=== PATIENT | female | born 1955 | race Caucasian/White ===

== ENCOUNTER → 2018-02-11 09:53 | Emergency (ER) | payer OTHER ==
[~2018-02-11 09:53] MED LIST: Ketorolac INJ* 30 MG/ML 1 ML VIAL IV PUSH ONE; NS 0.9% 1000 ML* 1,000 ML IV ONE
--- NOTE | 2018-02-11 10:15 | ED ---
Abdominal Pain/Female - HPI Summary HPI Summary: 63 y/o female presents to the ED c/o severe, constant ABD pain and N/V starting this morning. Pain rated 9/10, located mostly in the RUQ. Pt has had episodes intermittently for the past 6 months. The episodes are usually in the morning, not affected by meals. - History of Current Complaint Chief Complaint: EDAbdPain Stated Complaint: ABD PAIN Hx Obtained From: Patient Onset/Duration: Lasting Hours, Still Present Severity Initially: Severe Severity Currently: Severe Pain Intensity: 9 Pain Scale Used: 0-10 Numeric Location: Discrete At: RUQ Aggravating Factor(s): Nothing Alleviating Factor(s): Nothing Associated Signs and Symptoms: Positive: Nausea, Vomiting Allergies/Adverse Reactions: Allergies Allergy/AdvReac Type Severity Reaction Status Date / Time MS Penicillins [Penicillins] Allergy Rash Verified 02/11/18 10:37 Home Medications: Home Medications buPROPion TAB* [Wellbutrin TAB*] 100 mg PO DAILY 02/11/18 [History Confirmed ] PMH/Surg Hx/FS Hx/Imm Hx Previously Healthy: No Endocrine/Hematology History: Denies: Hx Diabetes Cardiovascular History: Denies: Hx Hypertension, Hx Pacemaker/ICD Respiratory History: Reports: Hx Sleep Apnea - CAN'T TOLERATE CPAP Denies: Hx Asthma History: Denies: Hx Renal Disease Musculoskeletal History: Reports: Hx Arthritis - LOW BACK, NECK, SHOULDERS Denies: Hx Scoliosis Sensory History: Denies: Hx Hearing Aid Neurological History: Denies: Hx Headaches, Other Neuro Impairments/Disorders Psychiatric History: Reports: Hx Anxiety Denies: Hx Panic Disorder - Cancer History Hx Chemotherapy: No - melanoma face Hx Radiation Therapy: No - Surgical History Surgery Procedure, Year, and Place: 1968 APPENDECTOMY [place]. 1997 ABDOMINAL ADHESIONS [facility] [place]. 2002 RT SHOULDER [facility] [place]. 2009 LEFT THIGH MUSCLE ( TRAUMA) [place]. MELANOMA REMOVED FROM FACE Hx Anesthesia Reactions: No Infectious Disease History: No Infectious Disease History: Denies: Traveled Outside the [place] in Last 30 Days - Social History Alcohol Use: Occasionally Alcohol Amount: 2 GLASSES/MONTH Substance Use Type: Reports: None Smoking Status (MU): Never Smoked Tobacco Have You Smoked in the Last Year: No Review of Systems Constitutional: Negative Eyes: Negative ENT: Negative Cardiovascular: Negative Respiratory: Negative Positive: Abdominal Pain, Vomiting, Nausea Genitourinary: Negative Musculoskeletal: Negative Skin: Negative Neurological: Negative Psychological: Normal All Other Systems Reviewed And Are Negative: No Physical Exam - Summary Physical Exam Summary: impressive epigastric and RUQ tenderness Triage Information Reviewed: Yes Vital Signs On Initial Exam: Initial Vitals Temp Pulse Resp BP Pulse Ox 96.6 F 86 16 147/95 98 02/11/18 09:54 02/11/18 09:54 02/11/18 09:54 02/11/18 09:54 02/11/18 09:54 Vital Signs Reviewed: Yes Diagnostics - Vital Signs Vital Signs Temp Pulse Resp BP Pulse Ox 02/11/18 09:54 96.6 F 86 16 147/95 98 - Laboratory Result Diagrams: 02/11/18 10:41 02/11/18 10:41 Lab Statement: Any lab studies that have been ordered have been reviewed, and results considered in the medical decision making process. - Ultrasound No standard instances Ultrasound Interpretation Completed By: Radiologist - Gallbladder US - HEPATIC STEATOSIS. CHOLELITHIASIS. ED Physician reviews and agrees. - EKG 1 EKG Interpretation: SR @ 74 BPM. Normal QRS, TQc, normal axis, no ST T wave changes. Abdominal Pain Fem Course/Dx - Course Course Of Treatment: 63 y/o female c/o severe RUQ pain and nausea starting this morning. Gallbladder US - HEPATIC STEATOSIS. CHOLELITHIASIS. EKG normal. Pt states this her 4th bad gallbladder attack and that his is a chronic issuse. I will give referral to general surgery. Pt will be d/c, given Tylenol and Motrin for pain and to avoid greasy foods. - Diagnoses Provider Diagnoses: Cholelithiasis Discharge - Sign-Out/Discharge Documenting (check all that apply): Patient Departure - Discharge Plan Condition: Stable Disposition: ADMITTED TO [facility] Patient Education Materials: Gallstones (ED) Referrals: Nic Garcia MD [Medical Doctor] - Lisa Camejo MD [Primary Care Provider] - Additional Instructions: Avoid fatty, greasy, or fried foods. take tylenol and motrin for pain. return if worse or any new symptoms. Please call Dr. Garcia, the surgeon, for a follow up appt to discuss your gallstone and the possibility of taking out your gallbladder. return if worse or any new symptoms. - Billing Disposition and Condition Condition: STABLE Disposition: Admitted to [facility] - Attestation Statements Document Initiated by Scribe: Yes Documenting Scribe: Bipin Duarte Provider For Whom Scribe is Documenting (Include Credential): Indy Donahue MD Scribe Attestation: Bipin Ramos, scribed for Indy Donahue MD on 02/11/18 at 1702. Scribe Documentation Reviewed: Yes Provider Attestation: The documentation as recorded by the Bipin carson accurately reflects the service I personally performed and the decisions made by , Indy Donahue MD
[2018-02-11 10:51] LABS: ABS Basophils 0 10^3/ul (0-0.2); ABS Eosinophils 0.1 10^3/ul (0-0.6); ABS Lymphocytes 1.7 10^3/ul (1.0-4.8); ABS Monocytes 0.5 10^3/ul (0-0.8); ABS Neutrophils 4.4 10^3/ul (1.5-7.7); ABS Nucleated RBC 0 10^3/ul; Eosinophil % 1.8 % (0-6); Hematocrit 40 % (35-47); Hemoglobin 13.8 g/dl (12.0-16.0); Lymphocyte % 25.4 % (25-47); Mean Corpuscular HGB Conc 35 g/dl (31-36); Mean Corpuscular Hemoglobin 29 pg (27-31); Mean Corpuscular Volume 84 fL (80-97); Mean Platelet Volume 8.1 um3 (7.4-10.4); Nucleated Red Blood Cells % 0.1; Platelet Count 286 10^3/ul (150-450); Red Blood Count 4.74 10^6/ul (4.00-5.40); Red Cell Distribution Width 13 % (10.5-15); White Blood Count 6.7 10^3/ul (3.5-10.8)
[2018-02-11 11:17] LABS: EGFR Non-African American 82.3 (>60)
--- NOTE | 2018-02-11 11:54 | RAD ---
INDICATION: Right upper quadrant pain COMPARISON: CT October 17, 2014 TECHNIQUE: Longitudinal and transverse scans of the right upper quadrant were obtained. Doppler interrogation of the hepatic and portal venous system was performed. FINDINGS: Liver: There is mild fatty infiltration with focal areas of sparing. The liver measures 16.9 cm in cephalocaudal dimension. Vessels: There is normal hepatic and portal venous flow. Bile ducts: There is no evidence of intrahepatic or extrahepatic ductal dilatation. The common duct measures 0.5 cm. Gallbladder: There are multiple gallstones. There is no thickening gallbladder wall or pericholecystic fluid. The patient was tender over the gallbladder. Pancreas: The visualized pancreas appears normal Right kidney: The right kidney is normal in size and echogenicity. There are no masses or calculi. There is no evidence of hydronephrosis. The right kidney measures 10.2 x 4.9 x 5.3 cm. IVC and aorta: The aorta and superior vena cava appear normal. Fluid: There is no ascites. Other: None. IMPRESSION: HEPATIC STEATOSIS. CHOLELITHIASIS.
[2018-02-11 13:43] VITALS: BP 140/90
== END | disposition short-term general hospital (02) ==
LOC: ED 09:53
DX: K80.20 Calculus of gallbladder without cholecystitis without obstruction (principal); Z85.820 Personal history of malignant melanoma of skin; K76.0 Fatty (change of) liver, not elsewhere classified
CPT/HCPCS: 36415; 76705; 80053; 83690; 83735; 84443; 84484; 85025; 93005; 96361; 96374; 99282; J1885

== ENCOUNTER 2018-03-02 11:33 | Day surgery (SDC) | payer OTHER ==
[~2018-03-02 11:33] MED LIST changes: +Buffered Lidocaine 0.9% SYRIN* 5 ML/SYR SYRINGE INTRADERM ONE; -Ketorolac INJ* 30 MG/ML 1 ML VIAL IV PUSH ONE; +Midazolam* 1 MG/ML 2 ML VIAL (2 MG) ONE; -NS 0.9% 1000 ML* 1,000 ML IV ONE; +fentaNYL* 50 MCG/ML 2 ML VIAL (100 MCG VIAL) ONE
[2018-03-02] MEDS ORDERED: ceFAZolin 2 GM in NS PREMIX(*) 2 GM/100 ML BAG IVPB ONE (11:41)
[2018-03-02] MEDS ORDERED: Ropivacaine* 2 MG/ML 20 ML VIAL (0.2%) ONE (11:58)
[2018-03-02] MEDS ORDERED: Bupivacaine 0.25% SDV PF* 10 ML VIAL INJ ONE (12:24)
[2018-03-02] MEDS ORDERED: PROCHLORPERAZINE INJ 5 MG/ML 2 ML VIAL IV PRN (12:39)
[2018-03-02] MEDS ORDERED: HYDROcodone/ACETAMIN 5-325 MG* 1 TAB PO PRN ×2 (12:39)
[2018-03-02] MEDS ORDERED: Ondansetron INJ* 2 MG/ML VIAL IV PRN (12:39)
[2018-03-02] MEDS ORDERED: fentaNYL* 50 MCG/ML 2 ML VIAL (100 MCG VIAL) IV PRN (12:39)
[2018-03-02] MEDS ORDERED: diPHENhydraMINE IV* 50 MG/ML 1 ml VIAL (BENADRYL) IV PRN (12:39)
[2018-03-02] MEDS ORDERED: Naloxone* 0.4 MG/ML 1 ML VIAL IV PRN (12:39)
[2018-03-02] MEDS ORDERED: Acetaminophen TAB* 325 MG PO PRN (12:39)
[2018-03-02] MEDS ORDERED: DiMENhydriNATE IV* 50 MG/ML VIAL IV PUSH PRN (12:39)
[2018-03-02] MEDS ORDERED: Nalbuphine* 10 MG/ML 1 ML VIAL IV PRN (12:39)
[2018-03-02] MEDS ORDERED: Scopolamine 1.5 mg* PATCH TRANSDERM PRN (12:39)
[2018-03-02] MEDS ORDERED: Propofol* 10 MG/ML 20 ML BTL IV PUSH ONE (12:53)
[2018-03-02] MEDS ORDERED: Dexamethasone IV* 4 MG/ML 1 ML (4 MG) ONE (12:53)
[2018-03-02] MEDS ORDERED: Mivacurium Chloride* 20 MG/10 ML VIAL IV ONE (12:53)
[2018-03-02] MEDS ORDERED: Lidocaine 2% PF * 5 ML VIAL ONE (12:53)
[2018-03-02] MEDS ORDERED: Famotidine IV* 10 MG/ML 2 ML (20 mg) ONE (12:53)
[2018-03-02] MEDS ORDERED: Ondansetron INJ* 2 MG/ML VIAL ONE (12:53)
[2018-03-02] MEDS ORDERED: Ketorolac INJ* 30 MG/ML 1 ML VIAL ONE (12:53)
[2018-03-02] MEDS ORDERED: fentaNYL* 50 MCG/ML 2 ML VIAL (100 MCG VIAL) ONE (13:11)
--- NOTE | 2018-03-02 13:36 | OP ---
Operative Report - Blank - Operative Report Date of Operation: 03/02/18 Note: Brief Operative Note Preop Dx: symptomatic cholelithiasis Postop Dx: same; plus sebaceous cyst of abdominal wall Procedure: laparoscopic cholecystectomy; excision sebaceous cyst abd wall Anesthesia: GET Surgeon: Jose Mail Distribution Clerk: CHAUNCEY Hidalgo Fluids: 900 ml RL EBL: < 50 ml Specimen: gallbladder; sebaceous cyst Drains: none Findings: dictated
[2018-03-02] MEDS ORDERED: HYDROcodone/ACETAMIN 5-325 MG* 1 TAB ONE (14:29)
[2018-03-02 14:51] VITALS: BP 128/80
--- NOTE | 2018-03-03 03:47 | OP ---
CC: Lisa Camejo MD * DATE OF OPERATION: 03/02/18 - [facility] DATE OF : 59 SURGEON: Nic Garcia MD. BROOMCORN GRADER: CHAUNCEY Can. ANESTHESIOLOGIST: Dr. Manuel Still. ANESTHESIA: General endotracheal. PRE-OP DIAGNOSIS: Symptomatic cholelithiasis. POST-OP DIAGNOSES: 1. Symptomatic cholelithiasis. 2. Sebaceous cyst abdominal wall. OPERATIVE PROCEDURE: 1. Laparoscopic cholecystectomy. 2. Excision of sebaceous cyst, abdominal wall. ESTIMATED BLOOD LOSS: Minimal. IV FLUIDS: Crystalloid. SPECIMENS: 1. Sebaceous cyst, abdominal wall. 2. Gallbladder. DRAINS: None. COMPLICATIONS: None. COUNTS: The instrument, needle, and sponge counts were correct. DESCRIPTION OF PROCEDURE: The patient was brought to the operating room and placed on the table supine. Sequential compression devices were placed on both lower extremities and general anesthesia was administered. The abdomen was prepped and draped in the usual sterile fashion. She received appropriate intravenous antibiotics. Time-out was performed. Local anesthetic was infiltrated into the skin and soft tissue prior to making each incision. A vertical midline incision was made and an open technique was used to access the abdominal cavity. Landmarks were altered due to the patient' s previous abdominoplasty. An incision was made in the vicinity of the prior expected umbilical site revealed a sebaceous cyst within the subcutaneous tissues at that site. This was excised completely and then the fascia was identified, grasped, and elevated and then the peritoneal cavity was entered. A 12 mm trocar was placed and carbon dioxide was insufflated to a pressure of 15 mmHg. Under direct visualization, 5 mm trocars were placed, 1 in the subxiphoid position and 2 in the right upper quadrant. The gallbladder was identified. It appeared to have chronic, inflammatory changes and scarring. The adhesions to the omentum adjacent to it were taken down with a combination of cautery and sharp dissection. The gallbladder fundus was then grasped and retracted cephalad and the peritoneum investing the gallbladder at the infundibulum was incised and peeled away medially and laterally, so that the cystic duct and cystic artery could be identified. There was a stone within the cystic duct, which was milked back and then the cystic duct and cystic artery were completely dissected out, doubly clipped, and divided after obtaining critical view. The gallbladder was then freed from attachments to the liver using the cautery and staying in an avascular plane. Once the gallbladder was freed, it was placed into an endoscopic retrieval bag and retrieved through the mid abdominal site. Copious lavage was performed with 2 liters of warm saline until clear. The mid abdominal incision was then closed with 0-Vicryl in an interrupted [id number] fashion to approximate the fascia. Skin incisions were closed with 4-0 Monocryl in a subcuticular suture fashion and Steri-Strips were applied. The patient tolerated this procedure well. She was subsequently extubated and transferred to Recovery in stable condition. [id number]/[facility] #: [id number] MTDD
[2018-03-05] MEDS ORDERED: Scopolamine PATCH Remove* 1 NOTE MISC PATCH OFF ONE (12:40)
== END 2018-03-02 15:10 | disposition home or self-care (01) ==
LOC: OR 11:33
PROVIDERS: ATTEND Surgery
DX: K80.10 Calculus of gallbladder with chronic cholecystitis without obstruction (principal); L72.0 Epidermal cyst; G47.33 Obstructive sleep apnea (adult) (pediatric); F41.8 Other specified anxiety disorders; Z85.820 Personal history of malignant melanoma of skin; Z87.442 Personal history of urinary calculi; G89.4 Chronic pain syndrome; F11.90 Opioid use, unspecified, uncomplicated
CPT/HCPCS: 88304; J0690; J1100; J1885; J2250; J2405; J2704; J2795; J3010; J3490